=== PATIENT | female | born 1995 | race Caucasian/White ===

== ENCOUNTER 2018-04-13 14:03 | Emergency (ER) | payer OTHER ==
[~2018-04-13] VITALS: Ht 157.5 cm; Wt 48.5 kg
[~2018-04-13 14:03] MED LIST: PRENATAL
[2018-04-13] MEDS ORDERED: MAXALT10 MG PO (14:22)
[2018-04-13 16:12] VITALS: BP 100/56
== END 2018-04-13 16:15 | disposition home or self-care (01) ==
LOC: M.ERS 14:03
DX: G43.519 Persistent migraine aura without cerebral infarction, intractable, without status migrainosus (principal)

== ENCOUNTER 2021-08-23 20:20 | Emergency (ER) | payer OTHER ==
[~2021-08-23] VITALS: Ht 162.6 cm; Wt 51.7 kg
[~2021-08-23 20:20] MED LIST changes: +MAXALT10 MG PO
[2021-08-23 21:44] VITALS: BP 121/70
== END 2021-08-23 21:44 | disposition home or self-care (01) ==
LOC: M.ERS 20:20
DX: S93.401A Sprain of unspecified ligament of right ankle, initial encounter (principal); S90.31XA Contusion of right foot, initial encounter; G43.909 Migraine, unspecified, not intractable, without status migrainosus; Z79.899 Other long term (current) drug therapy; X50.1XXA Overexertion from prolonged static or awkward postures, initial encounter; Y93.89 Activity, other specified; Y92.89 Other specified places as the place of occurrence of the external cause; Y99.8 Other external cause status